=== PATIENT | female | born 1960 | race Caucasian/White ===

== ENCOUNTER → 2017-02-21 | Day surgery (SDC) | payer MEDICARE, OTHER ==
[~2017-02-21] MED LIST: CALC-30 PO; FENTANYL PF 100 MCG/2 ML VIAL. IV PRN; FLUT1DIS3 IH; HYDROMORPHONE 2 MG/ML VIAL. IV PRN; IV RINGERS,LACTATED 1000ML 1,000 ML IV SCH; LIDOCAINE 1% 1 ML SYRINGE. ID PRN; MORPHINE SULFATE 2 MG/ML DISP.SYRIN. IV PRN; ONDANSETRON PF 4 MG/2 ML VIAL. IV PRN; PROCHLORPERAZINE 10 MG/2 ML VIAL. IV PRN; PROPOFOL 20 ML IV ONE; VARE1TAB21 PO; VENTOLIN HFA18 GM INH
[2017-02-21 09:15] VITALS: BP 140/73
== END | disposition home or self-care (01) ==
LOC: ENDOS 07:30
PROVIDERS: ATTEND Internal Medicine Gastroenterology
DX: Z12.11 Encounter for screening for malignant neoplasm of colon (principal); K64.0 First degree hemorrhoids; K57.30 Diverticulosis of large intestine without perforation or abscess without bleeding; I10 Essential (primary) hypertension; J44.9 Chronic obstructive pulmonary disease, unspecified; J45.909 Unspecified asthma, uncomplicated; K21.9 Gastro-esophageal reflux disease without esophagitis; E11.9 Type 2 diabetes mellitus without complications; D64.9 Anemia, unspecified
CPT/HCPCS: G0121; G0500; J2704

== ENCOUNTER 2019-06-22 09:55 | Emergency (ER) | payer MEDICARE, MEDICAID ==
[~2019-06-22] VITALS: Ht 165.1 cm; Wt 80.7 kg
[~2019-06-22 09:55] MED LIST changes: -FENTANYL PF 100 MCG/2 ML VIAL. IV PRN; -HYDROMORPHONE 2 MG/ML VIAL. IV PRN; -IV RINGERS,LACTATED 1000ML 1,000 ML IV SCH; -LIDOCAINE 1% 1 ML SYRINGE. ID PRN; -MORPHINE SULFATE 2 MG/ML DISP.SYRIN. IV PRN; -ONDANSETRON PF 4 MG/2 ML VIAL. IV PRN; -PROCHLORPERAZINE 10 MG/2 ML VIAL. IV PRN; -PROPOFOL 20 ML IV ONE
[2019-06-22 10:00] VITALS: BP 161/100
[2019-06-22] MEDS ORDERED: HYDR-3164 PO (10:43)
[2019-06-22] MEDS ORDERED: ACYC800T PO (10:43)
--- NOTE | 2019-06-22 10:43 | PHYS DOC ---
Past Medical History Past Medical History: COPD, Fibromyalgia Additional Past Medical Histor: intellectual disability Past Surgical History: Appendectomy, Cholecystectomy, Hysterectomy Alcohol Use: Rarely Drug Use: None Adult General Chief Complaint Chief Complaint: SHINGLES HPI HPI Patient is a 58 year old female who presents with complaining of shingles. Patient is a resident of disability facility and lives with her and has staff care. Patient complaining of pain for the rash in left breast since yesterday with some itching. Patient denies history of shingles. Review of Systems Review of Systems Constitutional: Denies fever or chills [] Eyes: Denies change in visual acuity, redness, or eye pain [] HENT: Denies nasal congestion or sore throat [] Respiratory: Denies cough or shortness of breath [] Cardiovascular: No additional information not addressed in HPI [] GI: Denies abdominal pain, nausea, vomiting, bloody stools or diarrhea [] : Denies dysuria or hematuria [] Musculoskeletal: Denies back pain or joint pain [] Integument: Reports rash Neurologic: Denies headache, focal weakness or sensory changes [] Endocrine: Denies polyuria or polydipsia [] All other systems were reviewed and found to be within normal limits, except as documented in this note. Allergies Allergies Allergies Coded Allergies Type Severity Reaction Last Updated Verified No Known Drug Allergies 02/21/17 No Physical Exam Physical Exam Constitutional: Well nourished, no acute distress, non-toxic appearance. [] HENT: Normocephalic, atraumatic Eyes: PERRLA, EOMI, conjunctiva normal, no discharge. [] Neck: Normal range of motion, no tenderness, supple, no stridor. [] Cardiovascular:Heart rate regular rhythm, no murmur [] Lungs & Thorax: Bilateral breath sounds clear to auscultation [] Skin: Warm, dry, no erythema, left breast with a blisteric lesion without sign of infection Back: No tenderness, no CVA tenderness. [] Extremities: No tenderness, no cyanosis, no clubbing, ROM intact, no edema. [] Neurologic: Alert and oriented Psychologic: Affect anxious. Current Patient Data Vital Signs Vital Signs Date Time Temp Pulse Resp B/P (MAP) Pulse Ox O2 Delivery O2 Flow Rate FiO2 06/22/19 10:00 98.5 90 14 161/100 (120) 98 Room Air 98.5 EKG EKG [] Radiology/Procedures Radiology/Procedures [] Course & Med Decision Making Course & Med Decision Making discharge: I've spoken with the patient and/or caregivers. I've explained the patient's condition, diagnosis and treatment plan based on information available to me at this time. I've answered the patient's and/or caregivers questions and addressed any concerns. The patient and/or caregivers have a good understanding the patient's diagnosis, condition and treatment plan as can be expected at this point. Vital signs have been stabilized. The patient's condition is stable for discharge from the emergency department. The patient will pursue further outpatient evaluation with her primary care provider or other designated consulting physician as outlined in the discharge instructions. Patient and/or caregivers are agreeable to this plan of care and follow-up instructions have been explained in detail. The patient and/or caregivers have received these instructions in written format and expressed und erstanding of these discharge instructions. The patient and her caregivers are aware that if any significant change in condition or worsening of symptoms should prompt him to immediately return to this of the closest emergency department. If an emergent department is not readily available I would encourage him to call 911. [place] Disclaimer Dragon Disclaimer This electronic medical record was generated, in whole or in part, using a voice recognition dictation system. Departure Departure Impression: Primary Impression: Shingles outbreak Disposition: HOME, SELF-CARE (at 1034) Condition: STABLE Referrals: JUAQUIN HOLLEY MD (PCP) Patient Instructions: Shingles Additional Instructions: Follow-up with your primary care physician in 3-5 days Return to ER if not getting better Scripts Acyclovir (ACYCLOVIR) 800 Mg Tablet 1 TAB PO 5XDAY, #25 TAB Prov: TODD DE LA CRUZ MD 06/22/19 Hydrocodone/Apap 5-325 (NORCO 5-325 TABLET) 1 Each Tablet 1 TAB PO PRN Q6HRS PRN for PAIN, #10 TAB 0 Refills Prov: TODD DE LA CRUZ MD 06/22/19 Problem Qualifiers Primary Impression: Shingles outbreak Herpes zoster complications: without complications Qualified Codes: B02.9 - Zoster without complications TODD DE LA CRUZ MD Jun 22, 2019 10:43
== END 2019-06-22 10:50 | disposition home or self-care (01) ==
LOC: ER 09:55
DX: B02.9 Zoster without complications (principal); J44.9 Chronic obstructive pulmonary disease, unspecified
CPT/HCPCS: 99283

== ENCOUNTER 2021-09-02 08:51 | Inpatient (IN) | payer OTHER, MEDICAID ==
[~2021-09-02] VITALS: Ht 167.6 cm; Wt 90.0 kg
[~2021-09-02 08:51] MED LIST changes: +ACYC800T88 PO; +HYDR-3164 PO
--- NOTE | 2021-09-02 09:00 | PHYS DOC ---
Past Medical History Past Medical History: COPD, Fibromyalgia Additional Past Medical Histor: intellectual disability Past Surgical History: Appendectomy, Cholecystectomy, Hysterectomy Smoking Status: Current Every Day Smoker Alcohol Use: Rarely Drug Use: None General Adult HPI: HPI: Patient is a 60 year old female who presents with EMS after a fall from ground- level. States she was walking with her when her tripped and fell into her. She fell onto her right side and braced herself with her right arm. She is complaining of pain in her right upper and lower extremities. Denies head strike. No LOC. Patient has remained at her mental status baseline since the fall. She does have a reported history of intellectual disability. Denies any neck or back pain. Denies numbness/tingling or weakness. No chest, abdominal, pelvic pain. No blood thinners. Review of Systems: Review of Systems: Constitutional: Denies fever or chills. [] Eyes: Denies change in visual acuity. [] HENT: Denies nasal congestion or sore throat. [] Respiratory: Denies cough or shortness of breath. [] Cardiovascular: Denies chest pain or edema. [] GI: Denies abdominal pain, nausea, vomiting, bloody stools or diarrhea. [] : Denies dysuria. [] Musculoskeletal: Reports right wrist, right knee, right ankle, right foot pain. Integument: Denies rash. [] Neurologic: Denies headache, focal weakness or sensory changes. [] Endocrine: Denies polyuria or polydipsia. [] Lymphatic: Denies swollen glands. [] Psychiatric: Denies depression or anxiety. [] Heart Score: C/O Chest Pain: No Allergies: Allergies: Allergies Coded Allergies Type Severity Reaction Last Updated Verified No Known Drug Allergies 02/21/17 No Physical Exam: PE: Constitutional: Well developed, well nourished, no acute distress, non-toxic appearance. [] HENT: No evidence of trauma to the head. Normocephalic. Eyes: PERRLA, EOMI, conjunctiva normal, no discharge. [] Neck: Normal range of motion, no tenderness, specifically no midline bony tenderness, supple, no stridor. [] Cardiovascular:Heart rate regular rhythm, no murmur [] Lungs & Thorax: No chest wall tenderness to palpation. Bilateral breath sounds clear to auscultation [] Abdomen: Bowel sounds normal, soft, no tenderness, no masses, no pulsatile masses. [] Skin: Warm, dry, no erythema, no rash. [] Back: No midline spinal tenderness, no CVA tenderness. [] Extremities: No pelvic instability or tenderness to palpation. Good range of motion of the hips. Complains of tenderness to palpation diffusely on the lower extremity from the knee to the ankle and some tenderness to the right wrist over the area of the distal radius. DP and radial pulses intact. Good distal perfusion. No deformity noted. No cyanosis, no clubbing, ROM intact, no edema. [] Neurologic: Alert and oriented X 3, normal motor function, normal sensory function, no focal deficits noted. [] Psychologic: Nervous affect EKG: EKG: [] Radiology/Procedures: Radiology/Procedures: [] Impression: [facility] [address] [place] [address] IMAGING REPORT Signed PATIENT: LAURIE BRITO AACCOUNT: [id number] : 1960 LOCATION: ER AGE: 60 SEX: F EXAM STATUS: PRE ER ORD. PHYSICIAN: NISHANT DUKE MD REASON: pain after fall PROCEDURE: ANKLE RIGHT 3V XR EXAM OF ANKLE_RIGHT 3VIEWS, XR RT TIBIA+FIBULA , XR FOOT_RIGHT 3 VIEWS, XR KNEE 3 VIEWS_RT History: Pain after fall. Comparison: None available. Findings: Diffusely decreased osseous mineralization. 3 views the right knee demonstrate comminuted lateral tibial plateau fracture with deformity at the articular surface, no significant displacement. Small knee effusion. Mild degenerative osteophytes at the medial tibiofemoral compartment. Benign-appearing intramedullary sclerosis in the distal femur. 2 views of the tibia and fibula demonstrate the previously mentioned lateral tibial plateau fracture and an oblique fracture of the distal fibular metadiaphysis. 3 views of the right ankle demonstrate the oblique distal fibular metadiaphysis fracture above the level of the tibiotalar joint. The talar dome is intact. Ankle mortise does not appear widened. There is degenerative changes of the medial malleolus and lateral malleolus from old injury. Soft tissue swelling about the ankle. 3 views of the right foot demonstrate large Achilles insertion and plantar calcaneal enthesophytes. Degenerative changes at the dorsal midfoot. The Lisfranc is normally aligned. No fracture or dislocation in the foot. IMPRESSION: 1. Mildly comminuted lateral tibial plateau fracture. 2. Oblique fracture of the distal fibular metadiaphysis. Electronically signed by: Rudy Ahn MD (09/02/2021 9:38 AM) [id number] DICTATED and SIGNED BY: RUDY AHN MD DATE: 09/02/[id number] 0 [facility] [address] [place] [address] IMAGING REPORT Signed PATIENT: LAURIE BRITO AACCOUNT: [id number] : 1960 LOCATION: ER AGE: 60 SEX: F EXAM STATUS: PRE ER ORD. PHYSICIAN: NISHANT DUKE MD REASON: pain after fall PROCEDURE: WRIST 3V RIGHT XR RT WRIST 3VIEWS History: Pain after fall. Comparison: None. Technique: 3 views the right wrist. Findings: Decreased osseous mineralization. No fracture or dislocation. Mild degenerative changes of the first CMC joint. No focal soft tissue swelling. Impression: 1. No acute osseous abnormality of the right wrist. Electronically signed by: Rudy Ahn MD (09/02/2021 9:40 AM) [id number] DICTATED and SIGNED BY: RUDY AHN MD DATE: 09/02/[id number] 0 Course & Med Decision Making: Course & Med Decision Making Pertinent Labs and Imaging studies reviewed. (See chart for details) Patient 60-year-old female with history of intellectual disability who presents with right wrist, and right lower extremity pain after a ground-level fall. No LOC or evidence of head trauma. No neck pain or tenderness. Do not feel that she requires any CT imaging. Plain films of the wrist and the right lower extremity ordered. 0900 Plain films show a lateral tibial plateau fracture and a oblique distal fibular fracture. Discussed with orthopedics who recommended knee immobilizer and DME boot for immobilization. Patient has difficulty with mobilization at baseline, so at this fracture will require hospitalization for PT and for orthopedic evaluation. 1050 Manan Disclaimer: Manan Disclaimer: This electronic medical record was generated, in whole or in part, using a voice recognition dictation system. Departure Departure Impression: Primary Impression: Tibial plateau fracture, right Additional Impression: Fracture of distal end of right fibula Disposition: ADMITTED INPATIENT Admitting Physician: KATHY Condition: STABLE Referrals: JUAQUIN HOLLEY MD (PCP) NISHANT DUKE MD Sep 02, 2021 09:00
--- NOTE | 2021-09-02 09:41 | RAD ---
XR EXAM OF ANKLE_RIGHT 3VIEWS, XR RT TIBIA+FIBULA , XR FOOT_RIGHT 3 VIEWS, XR KNEE 3 VIEWS_RT History: Pain after fall. Comparison: None available. Findings: Diffusely decreased osseous mineralization. 3 views the right knee demonstrate comminuted lateral tibial plateau fracture with deformity at the a rticular surface, no significant displacement. Small knee effusion. Mild degenerative osteophytes at the medial tibiofemoral compartment. Benign-appearing intramedullary sclerosis in the distal femur. 2 views of the tibia and fibula demonstrate the previously mentioned lateral tibial plateau fracture and an oblique fracture of the distal fibular metadiaphysis. 3 views of the right ankle demonstrate the oblique distal fibular metadiaphysis fracture above the le héctor of the tibiotalar joint. The talar dome is intact. Ankle mortise does not appear widened. There i s degenerative changes of the medial malleolus and lateral malleolus from old injury. Soft tissue swe lling about the ankle. 3 views of the right foot demonstrate large Achilles insertion and plantar calcaneal enthesophytes. D egenerative changes at the dorsal midfoot. The Lisfranc is normally aligned. No fracture or dislocati on in the foot. IMPRESSION: 1. Mildly comminuted lateral tibial plateau fracture. 2. Oblique fracture of the distal fibular metadiaphysis. Electronically signed by: Rudy Reeder MD (09/02/2021 9:38 AM) [id number]
--- NOTE | 2021-09-02 09:42 | RAD ---
XR RT WRIST 3VIEWS History: Pain after fall. Comparison: None. Technique: 3 views the right wrist. Findings: Decreased osseous mineralization. No fracture or dislocation. Mild degenerative changes of the first CMC joint. No focal soft tissue swelling. Impression: 1. No acute osseous abnormality of the right wrist. Electronically signed by: Rudy Reeder MD (09/02/2021 9:40 AM) [id number]
[2021-09-02 13:00] VITALS: BP 146/70
--- NOTE | 2021-09-02 13:29 | HP ---
DATE OF SERVICE: 09/02/2021 ADMIT DATE: 09/02/2021 CHIEF COMPLAINT: Fall with leg pain. HISTORY OF PRESENT ILLNESS: The patient is a pleasant 60-year-old female who is cognitively impaired. She apparently was walking with her . I think he fell and tripped and fell on to her. I think that pushed her into the wall then she fallen to the ground. She complains of leg pain. We did some imaging, which is confirming a tibial plateau fracture and a distal fibular fracture. I discussed the case with ER physician. We are going to admit the patient and consult Orthopedics. PAST MEDICAL AND SURGICAL HISTORY: Cognitively impaired, COPD, fibromyalgia, appendectomy, cholecystectomy, hysterectomy, tobacco abuse. ALLERGIES: None. FAMILY HISTORY: Coronary artery disease. SOCIAL HISTORY: She smokes. She is . No drink or drugs. MEDICATIONS: Reviewed, please refer to the MRAD. REVIEW OF SYSTEMS: GENERAL: No history of weight change, weakness or fevers. SKIN: No bruising, hair changes or rashes. EYES: No blurred, double or loss of vision. NOSE AND THROAT: No history of nosebleeds, hoarseness or sore throat. HEART: No history of palpitations, chest pain or shortness of breath on exertion. LUNGS: Denies cough, hemoptysis, wheezing or shortness of breath. GASTROINTESTINAL: Denies changes in appetite, nausea, vomiting, diarrhea or constipation. GENITOURINARY: No history of frequency, urgency, hesitancy or nocturia. NEUROLOGIC: Denies history of numbness, tingling, tremor or weakness. PSYCHIATRIC: No history of panic, anxiety or depression. ENDOCRINE: No history of heat or cold intolerance, polyuria or polydipsia. EXTREMITIES: She complains of right leg pain. PHYSICAL EXAMINATION: VITALS: Within normal limits and are stable. GENERAL: She is weak. HENT: Normal cephalic atraumatic, external auditory canals are patent. EYES: Extraocular muscles are intact, pupils are equally round and reactive to light and accommodation. MUSCULOSKELETAL: Well developed, well nourished, good range of motion. ENDOCRINE: No thyromegaly was palpated. LYMPHATICS: No cervical chain or axillary nodes were noted. HEMATOPOIETIC: No bruising. NECK: Supple, no JVD, no thyromegaly was noted. LUNGS: Clear to auscultation in all lung rodríguez without rhonchi or wheezing. HEART: RRR, S1, S2 present. Peripheral pulses intact, no obvious murmurs were noted. ABDOMEN: Soft, nontender. Positive bowel sounds no organomegaly, normal bowel sounds. EXTREMITIES: She has a brace on the right leg. NEUROLOGIC: She is cognitively impaired, but very pleasant. PSYCHIATRIC: She is a little anxious. SKIN: No ulcerations or rashes, good skin turgor, no jaundice. VASCULAR: Good capillary refill, neurovascular bundle appears to be intact. LABORATORY DATA: Pending. Imaging confirming a tibial plateau fracture and a right distal fibular fracture. ASSESSMENT AND PLAN: Fall with right tibial plateau fracture and right distal fibular fracture. The patient has been admitted. We will consult Orthopedics. Home meds. Deep venous thrombosis prophylaxis. Full code. I suspect she will go to surgery and postoperatively, she might need nursing home. P.r.n. pain meds. [facility] [place]: Yue TID: [id number]
[2021-09-02] MEDS ORDERED: IBUPROFEN 400 MG TABLET. PO PRN (14:00)
[2021-09-02] MEDS ORDERED: guaiFENesin DM 600/30MG 1 TAB TAB.ER.12H PO PRN (14:00)
[2021-09-02] MEDS ORDERED: guaiFENesin ORAL 200 MG/10 ML LIQUID. PO PRN (14:00)
[2021-09-02] MEDS ORDERED: CETIRIZINE HCL 10 MG TABLET. PO PRN (14:00)
[2021-09-02 15:00] VITALS: BP 143/96
[2021-09-02] MEDS: HYDROCORTISONE 1% LOTION BOTTLE. TP SCH ×2 (17:00→20:29)
[2021-09-02] MEDS ORDERED: oxyCODONE/APAP 5/325 1 TAB TABLET PO PRN (17:30)
--- NOTE | 2021-09-02 17:32 | PDOC2 ---
CONSULT Date of Consult Date of Consult DATE: 09/02/21 TIME: 17:27 Reason for Consult Reason for Consult: Right tibial plateau and left ankle fracture. Referring Physician Referring Physician: Dr. Khan Identification/Chief Complaint Chief Complaint Right tibial plateau and left ankle fracture. Source Source: Caregiver, Chart review, Patient History of Present Illness Reason for Visit: 60-year-old female admitted to the hospital after ground-level fall. She has mild to moderate MR and lives at an assisted living facility with her . They were outside walking when her tripped and fell into her knocking her over. She immediate pain in her right leg. She denies any prior history of injury. Prior to her fall she would use front wheel walker to walk some of the time. Radiographs were taken in the ER which revealed a lateral tibial plateau fracture as well as lateral malleolus fracture. She was placed into both the knee immobilizer and cam boot and admitted for pain control and social issues. and community caregiver at bedside. Current Problem List Problem List Problems Medical Problems: (1) Fracture of distal end of right fibula Status: Acute (2) Tibial plateau fracture, right Status: Acute Current Medications Current Medications Current Medications Acetaminophen (Tylenol) 650 mg BID PO ; Start 09/02/21 at 21:00 Calcium/Vitamin D (Oscal D 500mg/ 200uts) 1 tab BIDWMEALS PO ; Start 09/02/21 at 17:00 Cetirizine HCl (ZyrTEC) 10 mg PRN DAILY PRN PO ALLERGIES; Start 09/02/21 at 14:00 Diphenhydramine HCl (Benadryl) 25 mg PRN Q4HRS PRN PO ITCHING; Start 09/02/21 at 14:00 Fluticasone Propionate (Flonase) 2 spray DAILY NS ; Start 09/03/21 at 09:00 Guaifenesin (Robitussin) 100 mg PRN Q4HRS PRN PO COUGH (1st Choice); Start 09/02/21 at 14:00 Hydrocortisone (Cortizone-10) 1 fish QID TP ; Start 09/02/21 at 17:00 Ibuprofen (Motrin) 400 mg PRN Q8HRS PRN PO INFLAMMATION; Start 09/02/21 at 14:00 Montelukast Sodium (Singulair) 10 mg QHS PO ; Start 09/02/21 at 21:00 Guaifenesin (MUCINEX ER with DM) 1 tab PRN Q12HR PRN PO COUGH (2nd Choice); Start 09/02/21 at 14:00 Vitamin D (Vitamin D3) 1,000 unit DAILY PO ; Start 09/02/21 at 15:00 Active Scripts Active Acyclovir 800 Mg Tablet 1 Tab PO 5XDAY [place] 5-325 Tablet (Acetaminophen/Hydrocodone Bitart) 1 Each Tablet 1 Tab PO PRN Q6HRS PRN Reported Ventolin Hfa Inhaler (Albuterol Sulfate) 18 Gm Hfa.aer.ad 2 Puff INH Q4HRS Chantix (Varenicline Tartrate) 1 Mg Tablet 1 Mg PO BID Calcium 500 + Vit D 400 Tablet (Calcium Carbonate/Vitamin D3) 1 Each Tablet 1 Each PO Advair 250-50 Diskus (Fluticasone/Salmeterol) 1 Each Disk.w.dev 1 Puff IH BID Allergies Allergies: Coded Allergies: No Known Drug Allergies (Unverified , 09/02/21) ROS Musculoskeletal: Yes Gait Disturbance, Yes Joint Pain, Yes Joint Stiffness, Yes Joint Swelling, Yes Muscle Pain Physical Exam General: Alert, Cooperative, mild distress MUSCULOSKELETAL: Abnormal exam of right (Right leg splinted with knee immobilizer and cam boot. Skin is intact. No significant swelling or ecchymosis. Tenderness over the lateral tibia and lateral ankle. Range of motion limited secondary to pain. Motor and distal neurovascular examination is intact.) Vitals VITALS Vital Signs Date Time Temp Pulse Resp B/P (MAP) Pulse Ox O2 Delivery O2 Flow Rate FiO2 09/02/21 15:00 99.2 76 18 143/96 (112) 95 99.2 09/02/21 11:47 Room Air Images Images Radiographs of the right lower extremity reveal a minimally displaced lateral tibial plateau fracture without significant depression or displacement. Limb alignment is maintained. Radiographs of the right ankle reveal a minimally displaced lateral malleolus fracture with no significant mortise malalignment. Assessment/Plan Assessment/Plan 60-year-old female after ground-level fall with minimally displaced right lateral tibial plateau fracture and right lateral malleolus fracture. -Discussed the injuries with both patient, her , and bedside caregiver. We reviewed treatment options both surgical and nonsurgical. -We have elected proceed with nonsurgical treatment given her fractures are relatively nondisplaced. -Her mechanical alignment of her right lower extremity is also maintained. They were pleased with this information. -She will continue with use of the knee immobilizer and cam boot. -She will remain nonweightbearing on her right lower extremity. -Recommend working with physical therapy for transfer training. -Orthopedically stable for discharge with recommended outpatient orthopedic follow-up in 10 to 14 days for new radiographs. -Would likely be nonweightbearing for 8 to 10 weeks. RODRI MENDOZA DO Sep 02, 2021 17:32
[2021-09-02] MEDS: CALCIUM CARB/VIT D3 500/200 TABLET. PO SCH (17:54)
[2021-09-02] MEDS: CHOLECALCIFEROL (VITAMIN D3) 1,000 UNIT TABLET PO SCH (17:55)
[2021-09-02] MEDS: oxyCODONE/APAP 5/325 1 TAB TABLET PO PRN (18:01)
[2021-09-02 19:00] VITALS: BP 139/86
[2021-09-02] MEDS: MONTELUKAST SODIUM 10 MG TABLET. PO SCH (20:21)
[2021-09-02] MEDS: diphenhydrAMINE HCL 25 MG CAPSULE PO PRN (20:22)
[2021-09-02] MEDS: ACETAMINOPHEN 325 MG TABLET. PO SCH (20:22)
[2021-09-02 23:00] VITALS: BP 140/86
[2021-09-03] MEDS: diphenhydrAMINE HCL 25 MG CAPSULE PO PRN ×4 (01:42→20:50)
[2021-09-03] MEDS: oxyCODONE/APAP 5/325 1 TAB TABLET PO PRN ×3 (01:56→11:33)
[2021-09-03 02:00] VITALS: BP 140/84
[2021-09-03 07:00] VITALS: BP 128/66
[2021-09-03 07:40] LABS: BASO # 0.1 x10^3/uL (0.0-0.2); BASO % 0 % (0-3); EOS % 0 % (0-3); HEMATOCRIT 42.3 % (36.0-47.0); HEMOGLOBIN 14.4 g/dL (12.0-15.5); LYMPH # 4.7 x10^3/uL (1.0-4.8); LYMPH % 31 % (24-48); MEAN CORPUSCULAR HEMOGLOBIN 30 pg (25-35); MEAN CORPUSCULAR HGB CONC 34 g/dL (31-37); MEAN CORPUSCULAR VOLUME 88 fL (79-100); MONO # 1.7 x10^3/uL (0.0-1.1); MONO % 11 % (0-9); NEUT # 8.8 x10^3/uL (1.8-7.7); NEUT % 58 % (31-73); PLATELET COUNT 271 x10^3/uL (140-400); RED CELL DISTRIBUTION WIDTH 13.2 % (11.5-14.5); WHITE BLOOD COUNT 15.2 x10^3/uL (4.0-11.0)
[2021-09-03] MEDS: CALCIUM CARB/VIT D3 500/200 TABLET. PO SCH ×2 (08:25→16:50)
[2021-09-03] MEDS: CHOLECALCIFEROL (VITAMIN D3) 1,000 UNIT TABLET PO SCH (08:25)
[2021-09-03] MEDS: FLUTICASONE 50MCG/NASAL SPRAY 16GM BOTTLE. NS SCH (08:25)
[2021-09-03] MEDS: ACETAMINOPHEN 325 MG TABLET. PO SCH ×2 (08:26→20:47)
[2021-09-03 08:39] LABS: CALCIUM 9.5 mg/dL (8.5-10.1); GFR 56.9; POTASSIUM 3.8 mmol/L (3.5-5.1)
[2021-09-03] MEDS: HYDROCORTISONE 1% LOTION BOTTLE. TP SCH ×5 (09:00→20:49)
[2021-09-03 11:00] VITALS: BP 165/73
--- NOTE | 2021-09-03 12:14 | PDOC ---
[facility] PROGRESS NOTE Date of Service DOS: DATE: 09/03/21 TIME: 12:06 Chief Complaint Chief Complaint Mechanical fall Acute minimally displaced right lateral tibial plateau fracture and right lateral malleolus fracture. Continue PT OT modalities Adjusted IV n.p.o. pain control medications. Increase to [place] IV morphine as needed History of Present Illness History of Present Illness 60-year-old female who is cognitively impaired. She apparently was walking with her . I think he fell and tripped and fell on to her. I think that pushed her into the wall then she fallen to the ground. She complains of leg pain. We did some imaging, which is confirming a tibial plateau fracture and a distal fibular fracture. 09/03/2021 No acute events overnight. Patient seen examined bedside. Working with physical therapy and complains of a lot of pain. Not gotten out of bed yet. Patient's chart, labs, images were reviewed and discussed with RN Vitals/I&O Vitals/I&O: Vital Signs Date Time Temp Pulse Resp B/P (MAP) Pulse Ox O2 Delivery O2 Flow Rate FiO2 09/03/21 11:33 Room Air 09/03/21 07:00 98.1 78 18 128/66 (86) 96 98.1 I & O 09/02/21 09/02/21 09/03/21 15:00 23:00 07:00 Intake Total 400 ml 120 ml Output Total 202 ml 250 ml Balance 198 ml -130 ml Physical Exam General: Alert, Cooperative, mild distress Heart: Regular rate Lungs: Clear Abdomen: Normal bowel sounds Extremities: No clubbing Skin: No rashes Labs Labs: Laboratory Tests Test 09/03/21 06:15 09/03/21 07:10 White Blood Count 15.2 x10^3/uL (4.0-11.0) Red Blood Count 4.80 x10^6/uL (3.50-5.40) Hemoglobin 14.4 g/dL (12.0-15.5) Hematocrit 42.3 % (36.0-47.0) Mean Corpuscular Volume 88 fL (79-100) Mean Corpuscular Hemoglobin 30 pg (25-35) Mean Corpuscular Hemoglobin Concent 34 g/dL (31-37) Red Cell Distribution Width 13.2 % (11.5-14.5) Platelet Count 271 x10^3/uL (140-400) Neutrophils (%) (Auto) 58 % (31-73) Lymphocytes (%) (Auto) 31 % (24-48) Monocytes (%) (Auto) 11 % (0-9) Eosinophils (%) (Auto) 0 % (0-3) Basophils (%) (Auto) 0 % (0-3) Neutrophils # (Auto) 8.8 x10^3/uL (1.8-7.7) Lymphocytes # (Auto) 4.7 x10^3/uL (1.0-4.8) Monocytes # (Auto) 1.7 x10^3/uL (0.0-1.1) Eosinophils # (Auto) 0.0 x10^3/uL (0.0-0.7) Basophils # (Auto) 0.1 x10^3/uL (0.0-0.2) Sodium Level 142 mmol/L (136-145) Potassium Level 3.8 mmol/L (3.5-5.1) Chloride Level 104 mmol/L (98-107) Carbon Dioxide Level 25 mmol/L (21-32) Anion Gap 13 (6-14) Blood Urea Nitrogen 18 mg/dL (7-20) Creatinine 1.0 mg/dL (0.6-1.0) Estimated GFR (Cockcroft-Gault) 56.9 Glucose Level 123 mg/dL (70-99) Calcium Level 9.5 mg/dL (8.5-10.1) Assessment and Plan Assessmemt and Plan Problems Medical Problems: (1) Fracture of distal end of right fibula Status: Acute (2) Tibial plateau fracture, right Status: Acute Comment Review of Relevant I have reviewed the following items cody (where applicable) has been applied. Medications: Current Medications Medications (Trade) Dose Ordered Sig/Mele Route PRN Reason Start Time Stop Time Status Last Admin Dose Admin Acetaminophen (Tylenol) 650 mg BID PO 09/02/21 21:00 09/03/21 08:26 Calcium/Vitamin D (Oscal D 500mg/ 200uts) 1 tab BIDWMEALS PO 09/02/21 17:00 09/03/21 08:25 Diphenhydramine HCl (Benadryl) 25 mg PRN Q4HRS PRN PO ITCHING 09/02/21 14:00 09/03/21 06:06 Fluticasone Propionate (Flonase) 2 spray DAILY NS 09/03/21 09:00 09/03/21 08:25 Montelukast Sodium (Singulair) 10 mg QHS PO 09/02/21 21:00 09/02/21 20:21 Vitamin D (Vitamin D3) 1,000 unit DAILY PO 09/02/21 15:00 09/03/21 08:25 Oxycodone/ Acetaminophen (Percocet 5/325) 1 tab PRN Q4HRS PRN PO MILD PAIN 1-3 09/02/21 17:30 09/03/21 11:33 Justifications for Admission Other Justification SAM GUERRA MD Sep 03, 2021 12:14
[2021-09-03] MEDS ORDERED: MORPHINE SULFATE 2 MG/ML INJ. IV PRN (12:15)
[2021-09-03] MEDS: ENOXAPARIN 40 MG/0.4 ML SYRINGE. SQ SCH (14:53)
[2021-09-03] MEDS: HYDROcodone/APAP 5/325MG 1 TAB TABLET PO PRN ×2 (14:53→20:50)
[2021-09-03 15:00] VITALS: BP 125/67
[2021-09-03 19:00] VITALS: BP 147/70
[2021-09-03] MEDS: MONTELUKAST SODIUM 10 MG TABLET. PO SCH (20:49)
[2021-09-03 23:00] VITALS: BP 141/55
[2021-09-04 03:00] VITALS: BP 107/51
[2021-09-04] MEDS: HYDROcodone/APAP 5/325MG 1 TAB TABLET PO PRN ×4 (05:47→22:06)
[2021-09-04 07:00] VITALS: BP 124/68
[2021-09-04] MEDS: HYDROCORTISONE 1% LOTION BOTTLE. TP SCH ×4 (07:13→21:00)
[2021-09-04 07:42] LABS: BASO # 0.1 x10^3/uL (0.0-0.2); BASO % 0 % (0-3); EOS # 0.1 x10^3/uL (0.0-0.7); EOS % 1 % (0-3); HEMATOCRIT 40.8 % (36.0-47.0); LYMPH # 3.2 x10^3/uL (1.0-4.8); LYMPH % 23 % (24-48); MEAN CORPUSCULAR HEMOGLOBIN 30 pg (25-35); MEAN CORPUSCULAR HGB CONC 34 g/dL (31-37); MEAN CORPUSCULAR VOLUME 88 fL (79-100); MONO # 1.5 x10^3/uL (0.0-1.1); MONO % 11 % (0-9); NEUT % 65 % (31-73); PLATELET COUNT 242 x10^3/uL (140-400); RED BLOOD COUNT 4.65 x10^6/uL (3.50-5.40); WHITE BLOOD COUNT 13.8 x10^3/uL (4.0-11.0)
[2021-09-04] MEDS: ACETAMINOPHEN 325 MG TABLET. PO SCH ×2 (08:07→21:00)
[2021-09-04] MEDS: CALCIUM CARB/VIT D3 500/200 TABLET. PO SCH ×2 (08:07→15:41)
[2021-09-04] MEDS: CHOLECALCIFEROL (VITAMIN D3) 1,000 UNIT TABLET PO SCH (08:07)
[2021-09-04 08:32] LABS: CALCIUM 9.6 mg/dL (8.5-10.1); CREATININE 1.1 mg/dL (0.6-1.0); POTASSIUM 3.9 mmol/L (3.5-5.1)
[2021-09-04] MEDS: FLUTICASONE 50MCG/NASAL SPRAY 16GM BOTTLE. NS SCH (10:18)
[2021-09-04 11:00] VITALS: BP 176/86
[2021-09-04] MEDS ORDERED: HYDR-2761 PO (13:02)
[2021-09-04] MEDS ORDERED: SENN1TAB99 PO (13:03)
--- NOTE | 2021-09-04 13:05 | SNU/HH DC ---
DISCHARGE WITH HOME HEALTH DISCHARGE INFORMATION: Discharge Date: Sep 04, 2021 Final Diagnosis: Problems Medical Problems: (1) Fracture of distal end of right fibula Status: Acute (2) Tibial plateau fracture, right Status: Acute Condition on Discharge: Stable CODE STATUS: Code Status: Full HOME HEALTH: Face to Face: I certify this patient is under my care and that I, or a nurse practitioner or physician's teacher assistant working with me, had a face to face encounter that meets the physician face to face encounter requirements with this patient on []. Medical Complications: Falls RN For Eval/Treatment: Yes Physical Therapy For: Evalulation/Treatment Occupational Therapy For: Evaluation/Treatment Home Health Aide For: Self-care Pt Meets Homebound Status: Fatigue w/ amb., Frequent falls w/ injury, Limited distance walking, Unable to negotiate home FOLLOW-UP: Follow up with: PCP within 2 weeks of discharge Follow Up With: ORthopedic surgery as scheduled or as needed CERTIFICATION STATEMENT: Certification Statement: Certification Statement: Based on the above finding, I certify that this patient is confined to the home and needs intermittent penitentiary care, physical therapy and/or speech therapy, or continues to need occupational therapy.~ This patient is under my care, and I have initiated the establishment of the plan of care.~ This patient will be followed by myself or a community physician who will periodically review the plan of care. Home Meds Active Scripts Sennosides/Docusate Sodium (Senna-Docusate Sodium Tablet) 1 Each Tablet, 1 TAB PO DAILY PRN for CONSTIPATION for 20 Days, #20 TAB 0 Refills Prov:SAM GUERRA MD 09/04/21 Hydrocodone Bit/Acetaminophen (HYDROCODONE-APAP 5-325 ) 1 Tab Tablet, 1-2 TAB PO PRN Q6-8HRS PRN for PAIN for 3 Days, #21 TAB Prov:SAM GUERRA MD 09/04/21 Acyclovir (ACYCLOVIR) 800 Mg Tablet, 1 TAB PO 5XDAY, #25 TAB Prov:TODD DE LA CRUZ MD 06/22/19 Hydrocodone/Apap 5-325 (NORCO 5-325 TABLET) 1 Each Tablet, 1 TAB PO PRN Q6HRS PRN for PAIN, #10 TAB 0 Refills Prov:TODD DE LA CRUZ MD 06/22/19 Reported Medications Albuterol Sulfate (VENTOLIN HFA INHALER) 18 Gm Hfa.aer.ad, 2 PUFF INH Q4HRS for FOR ASTHMA, INHALER 0 Refills 02/21/17 Varenicline Tartrate (CHANTIX) 1 Mg Tablet, 1 MG PO BID, TAB 02/21/17 Calcium Carbonate/Vitamin D3 (CALCIUM 500 + VIT D 400 TABLET) 1 Each Tablet, 1 EACH PO 02/21/17 Fluticasone/Salmeterol (ADVAIR 250-50 DISKUS) 1 Each Disk.w.dev, 1 PUFF IH BID, #3 INHALER 3 Refills 02/21/17 SAM GUERRA MD Sep 04, 2021 13:04
[2021-09-04] MEDS: ENOXAPARIN 40 MG/0.4 ML SYRINGE. SQ SCH (14:18)
[2021-09-04 15:00] VITALS: BP 135/69
[2021-09-04 19:47] VITALS: BP 145/68
[2021-09-04] MEDS: MONTELUKAST SODIUM 10 MG TABLET. PO SCH (22:05)
[2021-09-04] MEDS: diphenhydrAMINE HCL 25 MG CAPSULE PO PRN (22:12)
[2021-09-04 22:52] VITALS: BP 151/74
[2021-09-05 03:22] VITALS: BP 150/76
[2021-09-05 07:00] VITALS: BP 143/77
[2021-09-05 07:10] LABS: BASO % 0 % (0-3); EOS # 0.2 x10^3/uL (0.0-0.7); EOS % 2 % (0-3); HEMATOCRIT 38.2 % (36.0-47.0); HEMOGLOBIN 13.4 g/dL (12.0-15.5); LYMPH # 2.4 x10^3/uL (1.0-4.8); LYMPH % 27 % (24-48); MEAN CORPUSCULAR HEMOGLOBIN 31 pg (25-35); MEAN CORPUSCULAR HGB CONC 35 g/dL (31-37); MEAN CORPUSCULAR VOLUME 87 fL (79-100); MONO # 0.9 x10^3/uL (0.0-1.1); MONO % 10 % (0-9); NEUT # 5.6 x10^3/uL (1.8-7.7); NEUT % 61 % (31-73); PLATELET COUNT 210 x10^3/uL (140-400); RED BLOOD COUNT 4.38 x10^6/uL (3.50-5.40); WHITE BLOOD COUNT 9.2 x10^3/uL (4.0-11.0)
[2021-09-05 07:18] LABS: CREATININE 0.9 mg/dL (0.6-1.0); GFR 64.3; POTASSIUM 3.7 mmol/L (3.5-5.1)
[2021-09-05] MEDS: HYDROCORTISONE 1% LOTION BOTTLE. TP SCH ×2 (07:32→08:59)
[2021-09-05] MEDS: HYDROcodone/APAP 5/325MG 1 TAB TABLET PO PRN ×2 (08:15→13:57)
[2021-09-05] MEDS: FLUTICASONE 50MCG/NASAL SPRAY 16GM BOTTLE. NS SCH (08:58)
[2021-09-05] MEDS: CALCIUM CARB/VIT D3 500/200 TABLET. PO SCH (08:59)
[2021-09-05] MEDS: ACETAMINOPHEN 325 MG TABLET. PO SCH (08:59)
[2021-09-05] MEDS: CHOLECALCIFEROL (VITAMIN D3) 1,000 UNIT TABLET PO SCH (08:59)
[2021-09-05 11:33] VITALS: BP 141/63
--- NOTE | 2021-09-05 13:42 | PDOC ---
[facility] PROGRESS NOTE Date of Service DOS: DATE: 09/05/21 TIME: 13:33 Chief Complaint Chief Complaint Mechanical fall Acute minimally displaced right lateral tibial plateau fracture and right lateral malleolus fracture. Continue PT OT modalities Adjusted IV n.p.o. pain control medications. Increase to [place] IV morphine as needed History of Present Illness History of Present Illness 60-year-old female who is cognitively impaired. She apparently was walking with her . I think he fell and tripped and fell on to her. I think that pushed her into the wall then she fallen to the ground. She complains of leg pain. We did some imaging, which is confirming a tibial plateau fracture and a distal fibular fracture. 09/03/2021 No acute events overnight. Patient seen examined bedside. Working with physical therapy and complains of a lot of pain. Not gotten out of bed yet. Patient's chart, labs, images were reviewed and discussed with RN. 09/05: Patient seen and evaluated. Reports continued extremity pain, but con trolled with medication. Orthopedic surgery discussed options with patient and family, and they have elected to proceed with nonsurgical treatment given relatively nondisplaced fractures. She will need to continue knee immobilizer in the nonbearing for 8-10 weeks. Initially plan was to have patient return back to her detention, but given family concerns I believe they are now a menable to rehab. Discussed with RN and community mental health social worker. Vitals/I&O Vitals/I&O: Vital Signs Date Time Temp Pulse Resp B/P (MAP) Pulse Ox O2 Delivery O2 Flow Rate FiO2 09/05/21 11:33 98.8 75 20 141/63 (89) 95 Room Air 98.8 I & O 09/04/21 09/04/21 09/05/21 15:00 23:00 07:00 Intake Total 670 ml 360 ml Balance 670 ml 360 ml Physical Exam General: Alert, Cooperative, No acute distress Heart: Regular rate Lungs: Clear Abdomen: Normal bowel sounds Extremities: No clubbing, Other Skin: No rashes Labs Labs: Laboratory Tests Test 09/05/21 06:15 09/05/21 06:18 Sodium Level 141 mmol/L (136-145) Potassium Level 3.7 mmol/L (3.5-5.1) Chloride Level 102 mmol/L (98-107) Carbon Dioxide Level 28 mmol/L (21-32) Anion Gap 11 (6-14) Blood Urea Nitrogen 13 mg/dL (7-20) Creatinine 0.9 mg/dL (0.6-1.0) Estimated GFR (Cockcroft-Gault) 64.3 Glucose Level 114 mg/dL (70-99) Calcium Level 9.0 mg/dL (8.5-10.1) White Blood Count 9.2 x10^3/uL (4.0-11.0) Red Blood Count 4.38 x10^6/uL (3.50-5.40) Hemoglobin 13.4 g/dL (12.0-15.5) Hematocrit 38.2 % (36.0-47.0) Mean Corpuscular Volume 87 fL (79-100) Mean Corpuscular Hemoglobin 31 pg (25-35) Mean Corpuscular Hemoglobin Concent 35 g/dL (31-37) Red Cell Distribution Width 13.0 % (11.5-14.5) Platelet Count 210 x10^3/uL (140-400) Neutrophils (%) (Auto) 61 % (31-73) Lymphocytes (%) (Auto) 27 % (24-48) Monocytes (%) (Auto) 10 % (0-9) Eosinophils (%) (Auto) 2 % (0-3) Basophils (%) (Auto) 0 % (0-3) Neutrophils # (Auto) 5.6 x10^3/uL (1.8-7.7) Lymphocytes # (Auto) 2.4 x10^3/uL (1.0-4.8) Monocytes # (Auto) 0.9 x10^3/uL (0.0-1.1) Eosinophils # (Auto) 0.2 x10^3/uL (0.0-0.7) Basophils # (Auto) 0.0 x10^3/uL (0.0-0.2) Assessment and Plan Assessmemt and Plan Problems Medical Problems: (1) Fracture of distal end of right fibula Status: Acute (2) Tibial plateau fracture, right Status: Acute Comment Review of Relevant I have reviewed the following items cody (where applicable) has been applied. Justifications for Admission Other Justification SARAH FARMER MD Sep 05, 2021 13:42
[2021-09-05] MEDS ORDERED: hydrALAZINE 20 MG/ML VIAL. IVP PRN (13:45)
[2021-09-05] MEDS: ENOXAPARIN 40 MG/0.4 ML SYRINGE. SQ SCH (13:55)
[2021-09-05 14:46] VITALS: BP 123/70
--- NOTE | 2021-09-07 23:26 | PDOC ---
[facility] PROGRESS NOTE Date of Service DOS: DATE: 09/04/21 TIME: 13:25 Chief Complaint Chief Complaint Mechanical fall Acute minimally displaced right lateral tibial plateau fracture and right lateral malleolus fracture. Continue PT OT modalities Adjusted IV n.p.o. pain control medications. Increase to [place] IV morphine as needed History of Present Illness History of Present Illness 60-year-old female who is cognitively impaired. She apparently was walking with her . I think he fell and tripped and fell on to her. I think that pushed her into the wall then she fallen to the ground. She complains of leg pain. We did some imaging, which is confirming a tibial plateau fracture and a distal fibular fracture. 09/03/2021 No acute events overnight. Patient seen examined bedside. Working with physical therapy and complains of a lot of pain. Not gotten out of bed yet. Patient's chart, labs, images were reviewed and discussed with RN. 09/04/21 Brother, Adolfo Mercedes, visited patient and shared concerns about safety regarding patient going back to previous placement. Brother stated that he talked with patient and patient would be agreeable to rehab. Physical Exam General: Alert, Cooperative, No acute distress Heart: Regular rate Lungs: Clear Abdomen: Normal bowel sounds Extremities: No clubbing, Other Skin: No rashes Assessment and Plan Assessmemt and Plan Problems Medical Problems: (1) Fracture of distal end of right fibula Status: Acute (2) Tibial plateau fracture, right Status: Acute Comment Review of Relevant I have reviewed the following items cody (where applicable) has been applied. Justifications for Admission Other Justification SAM GUERRA MD Sep 07, 2021 23:26
--- NOTE | 2021-09-28 18:54 | PDOC3 ---
[facility]-Discharge Summary Date of Admission: Date of Admission: Sep 02, 2021 Date of Discharge: Date of Discharge: Oct 06, 2021 Discharge Diagnosis: Discharge Diagnosis: Mechanical fall Acute minimally displaced right lateral tibial plateau fracture and right lateral malleolus fracture. Hospital Course: Hospital Course: 60-year-old female who is cognitively impaired. She apparently was walking with her . I think he fell and tripped and fell on to her. I think that pushed her into the wall then she fallen to the ground. She complains of leg pain. We did some imaging, which is confirming a tibial plateau fracture and a distal fibular fracture. 09/03/2021 No acute events overnight. Patient seen examined bedside. Working with physical therapy and complains of a lot of pain. Not gotten out of bed yet. Patient's chart, labs, images were reviewed and discussed with RN. 09/04/21 Brother, Adolfo Mercedes, visited patient and shared concerns about safety regarding patient going back to previous placement. Brother stated that he talked with patient and patient would be agreeable to rehab. per note from Cad Manager following: Reviewed patient chart and patient is from [facility] and may go back when medically stable. Spoke with CATHRYN Card and patient is on room air and cardiac diet. Spoke with PT Silvano and patient is going to need some DME equipment like a wheelchair, etc. Called and spoke with Camp Boss Yuval from [employer] at [phone] and they can provide wh eelchair and any DME equipment patient may need there and can get the scripts there as they will have to go through patient's insurance. Informed Camp Boss that patient has orders to discharge with home health. Camp Boss said that they will need to look at the orders and will set up any therapy patient may need. [employer] requested some clinicals and said to just put in a pac ket and they can come orange picking supervisor patient and the packet between [phone]. Informed CATHRYN Card of plans. Packet (including discharge instructions) provided to ELECTRICAL CONTROLS ENGINEER to give to [employer]'s distribution driver when they come orange picking supervisor patient. Instructed [employer] to inform their distribution driver to call the nursing unit when at entrance so staff can bring down patient and packet. Anticipate discharge today 09/05/21 to home at [facility] between [phone] per w/c by [employer] Transportation. Disposition: Disposition/Orders: D/C to Home Activity: Activity: Resume previous activity Medications: Home Meds Active Scripts Sennosides/Docusate Sodium (Senna-Docusate Sodium Tablet) 1 Each Tablet, 1 TAB PO DAILY PRN for CONSTIPATION for 20 Days, #20 TAB 0 Refills Prov:SAM GUERRA MD 09/04/21 Hydrocodone Bit/Acetaminophen (HYDROCODONE-APAP 5-325 ) 1 Tab Tablet, 1-2 TAB PO PRN Q6-8HRS PRN for PAIN for 3 Days, #21 TAB Prov:SAM GUERRA MD 09/04/21 Acyclovir (ACYCLOVIR) 800 Mg Tablet, 1 TAB PO 5XDAY, #25 TAB Prov:TODD DE LA CRUZ MD 06/22/19 Hydrocodone/Apap 5-325 (NORCO 5-325 TABLET) 1 Each Tablet, 1 TAB PO PRN Q6HRS PRN for PAIN, #10 TAB 0 Refills Prov:TODD DE LA CRUZ MD 06/22/19 Reported Medications Albuterol Sulfate (VENTOLIN HFA INHALER) 18 Gm Hfa.aer.ad, 2 PUFF INH Q4HRS for FOR ASTHMA, INHALER 0 Refills 02/21/17 Varenicline Tartrate (CHANTIX) 1 Mg Tablet, 1 MG PO BID, TAB 02/21/17 Calcium Carbonate/Vitamin D3 (CALCIUM 500 + VIT D 400 TABLET) 1 Each Tablet, 1 EACH PO 02/21/17 Fluticasone/Salmeterol (ADVAIR 250-50 DISKUS) 1 Each Disk.w.dev, 1 PUFF IH BID, #3 INHALER 3 Refills 02/21/17 Scheduled Acyclovir (Acyclovir), 1 TAB PO 5XDAY Albuterol Sulfate (Ventolin Hfa Inhaler), 2 PUFF INH Q4HRS, (Reported) Fluticasone/Salmeterol (Advair 250-50 Diskus), 1 PUFF IH BID, (Reported) Varenicline Tartrate (Chantix), 1 MG PO BID, (Reported) Scheduled PRN Hydrocodone Bit/Acetaminophen (Hydrocodone-Apap 5-325 ), 1-2 TAB PO PRN Q6- 8HRS PRN for PAIN Hydrocodone/Apap 5-325 ([place] 5-325 Tablet), 1 TAB PO PRN Q6HRS PRN for PAIN Sennosides/Docusate Sodium (Senna-Docusate Sodium Tablet), 1 TAB PO DAILY PRN for CONSTIPATION Miscellaneous Medications Calcium Carbonate/Vitamin D3 (Calcium 500 + Vit D 400 Tablet), 1 EACH PO, (Reported) Total Time: Total Time: Total time spent was 32 minutes in preparing scripts, discharge planning with SWI and RN and preparing this discharge summary Patient seen and examined on day of discharge. No acute abnormal findings. Justicifation of Admission Dx: Justifications for Admission: Justification of Admission Dx: Yes Fracture: Fracture SAM GUERRA MD Sep 28, 2021 18:54
== END 2021-09-05 14:50 | disposition home health service (06) | DRG 563 ==
LOC: ER 08:51 → 4 NORTH 10:51
PROVIDERS: ADMIT Internal Medicine; ATTEND Internal Medicine
DX: S82.61XA Displaced fracture of lateral malleolus of right fibula, initial encounter for closed fracture (principal); S82.141A Displaced bicondylar fracture of right tibia, initial encounter for closed fracture; F17.200 Nicotine dependence, unspecified, uncomplicated; F79 Unspecified intellectual disabilities; J44.9 Chronic obstructive pulmonary disease, unspecified; M79.7 Fibromyalgia; W01.0XXA Fall on same level from slipping, tripping and stumbling without subsequent striking against object, initial encounter; Y93.01 Activity, walking, marching and hiking; Z82.49 Family history of ischemic heart disease and other diseases of the circulatory system; Z90.49 Acquired absence of other specified parts of digestive tract; Z90.710 Acquired absence of both cervix and uterus
CPT/HCPCS: 29505; 36415; 73110; 73562; 73590; 73610; 73630; 80048; 85025; J1650; 97530-GP; 97535-GO; 99285-25; G0378; Q0163